=== PATIENT | female | born 2000 | race Two or more races ===

== ENCOUNTER 2023-04-13 23:55 | Emergency (ER) | payer OTHER ==
[~2023-04-13] VITALS: Ht 170.2 cm; Wt 57.6 kg
[2023-04-14] MEDS ORDERED: PEPCID40 MG PO (02:10)
[2023-04-14] MEDS ORDERED: BENADRYL25 MG PO (02:10)
[2023-04-14] MEDS ORDERED: MEDROL8 MG PO (02:10)
== END 2023-04-14 02:45 ==
LOC: ER 23:55
DX: T78.49XA Other allergy, initial encounter (principal); X58.XXXA Exposure to other specified factors, initial encounter